=== PATIENT | male | born 1985 | race Asian ===

== ENCOUNTER 2017-05-09 17:23 | Inpatient (IN) | payer OTHER ==
[~2017-05-09] VITALS: Ht 172.7 cm; Wt 77.1 kg
[2017-05-09] MEDS ORDERED: Magnesium Hydroxide 10 mL Oral Concentration PO PRN (21:00)
[2017-05-09] MEDS ORDERED: Benzocaine-Menthol Lozenge 2/Pkg PO PRN (21:00)
[2017-05-09] MEDS ORDERED: Alum-Mag Hydrox-Simeth 30 mL Suspension PO PRN (21:00)
[2017-05-09] MEDS: PALIPERIDONE 6 MG PO SCH (21:25)
--- NOTE | 2017-05-09 23:09 | NUR ---
New Admit Involuntary admit arrived from [facility] at 1935. He was detained after standing outside his neighbors home with knives in his hands. He was fearful someone wanted to harm him. He had been well stabilized with injectable medication but his insurance stopped coverage of that medication and he was changed to an oral version which has not been effective. Pt has decompensated over the last several weeks. Upon arrival he has been actively responding to his voices speaking nonstop to them. He is cooperative with care, agreeable to care and signed admission paperwork. He received his scheduled medication without difficulty. He remains awake at current time. Addendum: 05/10/17 at 0548 by ERNESTO HAYS RN Sleep Pt continued to talk loudly to his voices stating to his voices "She is going to give me an Ativan . I am going to fall asleep and then she is going to kill me". Pt offered and accepted Ativan 1mg po and Vistaril 50mg po prn @ 2330 for felt anxiety. Pt noted to be pacing and responding to AH. He fell asleep in a dining room chair for a period of time. Awoke then walked to his room and promptly fell back asleep. Pt has remained asleep since 0200 to current time for a total of 3.5+ hours.
[2017-05-09] MEDS: hydrOXYzine Pamoate 25 mg Capsule PO PRN (23:15)
[2017-05-09] MEDS: LORazepam 1 mg Tablet PO PRN (23:16)
[2017-05-10] MEDS ORDERED: risperiDONE 2 mg Tablet ONE (00:07)
[2017-05-10] MEDS ORDERED: risperiDONE 2 mg Tablet PO ONE (00:30)
[2017-05-10] MEDS ORDERED: PALI6TAB6 PO (00:31)
[2017-05-10] MEDS ORDERED: HYDR-656 PO (00:33)
[2017-05-10] MEDS: PALIPERIDONE 6 MG PO SCH (07:48)
--- NOTE | 2017-05-10 14:31 | NUR ---
spiritual care: pt request/company introduced myself to pt as he was walking around. he stated he was sleepy but would like to visit for awhile. Pt responded in wooden manner to leading questions (where he lives, what are some things you like to do, family) with minimal but clear responses and he seemed to be responding also to internal stimuli. He murmured quietly throughout our short visit, minimal eye contact and he offered he was not spiritual or moravian, but he believed in a heaven and hell. thanked me for the visit and was agreeable for follow up.
[2017-05-10] MEDS: risperiDONE 1 mg Tablet PO SCH (15:03)
--- NOTE | 2017-05-10 15:17 | NUR ---
Intervention Specialist/Counselor S:"The voices come out of my mouth." O: Patient denies any SI or HI, no visual hallucinations, but has auditory hallucinations. Patient states he hears voices that tell him what to say. His anxiety is at an 8 and his depression at a 0. Patient had 4+ hours of broken sleep. A: Patient was distracted. He mumbled under his breath and stated it was "the voices" speaking for him. He referred to himself in the 3rd person at times. He made minimal eye contact. P: Follow care plan and coordinate with outpatient providers.
[2017-05-10] MEDS: LORazepam 1 mg Tablet PO PRN ×2 (15:34→21:07)
--- NOTE | 2017-05-10 15:34 | NUR ---
Nurses Note PRN Patient received Ativan 1mg at this time for anxiety related to continual auditory hallucinations. Patient has received Risperdal 1mg a short time ago,will assess response.
--- NOTE | 2017-05-10 16:13 | NUR ---
Obs Dayshift Pt is constantly responding to IS, pacing the unit or laying in bed talking w/ unseen others. Pt is often seen w/ his head down, poor eye contact, shuffling and pacing around the unit aimlessly. Pt is not engaging w/ peers, and little w/ staff. Pt is preoccupied, delusional, calm, restless. Ok ADL's, Good meals
--- NOTE | 2017-05-10 17:06 | HP ---
[address] [address] HISTORY AND PHYSICAL PATIENT: BYRON CANTOR : 1985 MR#: [id number] ADMIT: 05/09/2017 JOB ID: [id number] IDENTIFYING DATA: The patient is a 31-year-old male with a history of schizophrenia, who is admitted on a 72-hour [id number] following frequent calls to 911 and report of walking around the neighborhood with "inner tube inserter knives and knocking on people's doors." REFERRAL INFORMATION: The patient is referred by [facility]. CHIEF COMPLAINT: "We had an altercation of someone coming to get me in the house, so I was calling 911." HISTORY OF PRESENT ILLNESS: The patient reports a one-year history of psychotic symptoms and had previously been hospitalized at [facility] in 2016 for approximately two weeks. He reports that he had been treated with Invega Sustenna but his insurance would no longer pay for the injections and so was switched to Invega Sustenna 6 mg which the patient reportedly had been compliant with but his symptoms were worsening despite this. He stated that although he had gone to his neighbors doors, he did not have knives with him at that time. He did state that he had been walking around the house with knives concerned that others, such as a burglar, might break into the house. The patient endorsed occasional auditory hallucinations but not as bad as they had been in the past. He reports that, "Other people talk through my mouth, and they won't allow me to tell you." During the interview, he can be heard making commentaries under his breath, often in response to his own responses. Although initially endorsing symptoms of giuseppe, on further assessment, the patient simply has lack of sleep for typically one day up to a maximum of one week with no increase in activity or worsening of psychotic symptoms. He denies a history of panic, depression or obsessive-compulsive symptoms. He reports decreased sleep over the last couple of weeks with none in the last week, with decreased appetite, but unsure whether he has had any weight change. Energy has been reported as normal and libido, he stated, "I don't have sex." PAST PSYCHIATRIC HISTORY: Outpatient, he is followed at [facility] within [place], his therapist. Inpatient, he has been to [facility] in 2016 for approximately two weeks. He reports his only medication that he has been tried on is Invega. He denies a history of suicide attempts or self-injurious behavior. He denies a family history of mental illness or completed suicide. He endorses a family history of alcohol and substance use on both sides of the family. He reports a family history of borderline diabetes. SUBSTANCE HISTORY: He denies the use of alcohol except on his birthday. He states he prefers Pepsi or Coke. He denies marijuana, cocaine, heroin, amphetamines, huffing, hallucinogens or IV drug abuse. He denies inpatient or outpatient drug treatment. SOCIAL HISTORY: The patient was born in [place] and initially raised in [place], but his parents at age [age] and he was initially raised by his mother. Then, in , lived with his cousin, and from , he lived with his father, and then from 2003 onwards, with his mother. He reports at one point, the possession of the house was transferred to him and so now his mother lives with him instead of the other way around. He reports his father in 2009. He reports having an approximately one-year relationship which ended in 2003 and has one child, age 15, who lives with a foster family in [place]. 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 He has two half-sisters, two stepsisters, one stepbrother and one stepbrother with mental illness. His primary support is his mother with whom he lives. He endorses a history of special education. He denies a history of physical, sexual or emotional abuse. He denies any legal history. PAST MEDICAL HISTORY: The patient denies any acute medical issues. CURRENT MEDICATIONS: 1. Invega 6 mg daily. 2. Hydroxyzine 25 mg four times daily. ALLERGIES: CECLOR, which causes edema. HISTORY OF TRAUMATIC BRAIN INJURY: Denies history of TBI, loss of consciousness or seizure. LABORATORY STUDIES: CBC within normal limits except for an MCHC of 37.7 and an MPV of 0.5. TSH 0.924. CMP within normal limits except for a glucose of 135. Urine tox screen negative for amphetamines, barbiturates, benzodiazepines, cocaine, methadone, opiates, oxycodone, PCP, or cannabinoids. Urine creatinine was 103 mg/dL. Breath alcohol of 0.00. Physical examination at [facility] was unremarkable. Blood pressure was 138/94, with a heart rate of 16, on May 08, 2017. MENTAL STATUS EXAMINATION: Appearance: The patient is a somewhat unkempt-appearing male, appearing his stated age with several days' growth of juarez. Behavior: The patient is generally cooperative with the interview. Does not make eye contact and is noted to be either talking to himself or responding to his own comments in the 3rd person. At the beginning of the interview, he demonstrates how he left the home with knives and put them on the ground and then laid on the ground in a prone fashion for police. Speech: Normal rate, volume and somewhat monotone but is noted to be speaking in low tones, responding to his own statements. Mood: "Pretty good." Affect: Fairly flat. Thought content: He denies suicidal or homicidal ideation, ideas of reference, thought insertion, thought broadcasting or thought withdrawal. He does endorse paranoid ideation and auditory hallucinations but denies visual hallucinations. He rates his anxiety as 8/10 and his depression as 0/10. Memory: He has 3/3 object recall at zero minutes and 2/3 object recall at 3 minutes. Language: He is able to repeat the phrase, "no ifs, ands, or buts, " and able to name three objects. Memory and concentration: He is unable to spell the word world or count backwards and reports this due to learning disability. Fund of information: The patient is aware that the current president is Andrzej and that the capital [facility] is "[employer]" [place]. Insight is fair. Judgment is impaired. Orientation: He is oriented to [facility] 09[facility] 2017, [facility] Sensorium: The patient is alert and oriented without evidence of delirium or dementia. IMPRESSION: The patient is a 31-year-old male with a history of schizophrenia, who presents with symptom exacerbation after being switched from Invega Sustenna to oral Invega. Discussed with outpatient team plan to switch to risperidone and potentially use Risperdal Consta. The patient's outpatient team will be investigating whether this is covered under his insurance. The patient is agreeable to this plan. DSM IV DIAGNOSES: AXIS I. Schizophrenia, chronic paranoid type with acute exacerbation. AXIS II. Deferred. AXIS III. None acute. AXIS IV. None known. AXIS V. Global Assessment of Functioning 35. PLAN: 1. The patient will be admitted to the mental health unit and provided a safe and secure environment. 2. The patient is encouraged to participate with group and milieu activities. 3. The patient is currently denying homicidal or suicidal ideation and is agreeable to notifying staff should this change and is therefore not in need of a one-to-one at this time. 4. The treatment team will meet with the patient on an ongoing basis to assess symptom side effects and response to treatment. 5. Initiate Risperdal 1 mg daily and 2 mg nightly and titrate to an anticipated dose of 3-4 mg per day. 6. Continue Invega 6mg daily for a few days prior to discontinuation. 7. Will follow up with the outpatient team regarding potential for initiation of Risperdal Consta. 8. Anticipated length of stay is 10-14 days. MTDD
[2017-05-10 17:49] VITALS: BP 130/92; PULSE 86; RESP 17
--- NOTE | 2017-05-10 18:00 | NUR ---
Nursin through 1900 S: The voices are coming out of my mouth, not my head. O: Nick has been in his room for long periods today. Cooking Chef observed walking by his room that Nick was lying on his bed talking aloud, responding verbally to unseen presence. When approached, he stopped talking, gave good eye contact, answered my assessment questions, then as I walked from room, he turned over and resumed his conversation with internal stimuli. Denied anxiety, suicidality, and depression. Acknowledged that he heard voices but stated, as above, that they come from his mouth. PRN med: Ativan one mg at 1530 for any distress voices may be causing. At 1800, denies anxiety. A: Attending to internal stimuli. P: Continue to observe and assess. [place] more to unit as needed.
[2017-05-10] MEDS: risperiDONE 2 mg Tablet PO SCH (21:07)
[2017-05-10 23:07] VITALS: BP 117/80; PULSE 90
--- NOTE | 2017-05-11 05:23 | NUR ---
SHIMA/NOC PT has been in room sleeping all shima and night. PT did come out to the dayroom once and had a snack and then quickly returned to his room to sleep. Overheard pt talking to himself as he walked down the [place]. This RN asked him how he was doing and he said "fine." PT would not engage in conversation. NO complaints from pt. Slept excessively. Will CTM for any A/R and continue with current POC.
[2017-05-11] MEDS: PALIPERIDONE 6 MG PO SCH ×2 (08:30→09:16)
[2017-05-11] MEDS: risperiDONE 1 mg Tablet PO SCH (08:32)
--- NOTE | 2017-05-11 17:06 | NUR ---
Nursing Day Shift S: "I feel better today than yesterday." O: Patient has been up and out of his room a good amount of the day. Good appetite at meals. Some ambulating of the [place]. Attending unit activities "I didn't set a goal though". Denies anxiety, depression, harmful thoughts, and hallucinations. A: Blunted affect. Med compliant. P: CPOC. Monitor mood and behavior.
[2017-05-11] MEDS: risperiDONE 2 mg Tablet PO SCH (18:34)
[2017-05-11] MEDS: LORazepam 1 mg Tablet PO PRN (18:34)
--- NOTE | 2017-05-11 18:35 | NUR ---
Nurses PRN Patient actively responding to inner stimulation,talking aloud while restlessly walking the halls. Patient requested medication for voices and received Ativan 1mg PRN and Risperdal 2mg scheduled early,will assess response.
--- NOTE | 2017-05-11 18:54 | NUR ---
[facility] Day Shift Pt maintained behavioral control throughout the shift. Pt affect appears mostly flat. Pt spends most of the shift lightly pacing the unit and resting in his room. Pt appears internally preoccupied, mumbling to himself and occasionally laughing inappropriately. Pt is appropriate with staff and peers when active on the unit. Pt attended community meeting in the AM and participated lightly in group activities throughout the shift. Pt attended all meals and ate approx 100% of all meals.
--- NOTE | 2017-05-11 19:33 | NUR ---
channel sales manager/Counselor: S: "I don't have sex." O: Patient slept 8 hours last night per staff. He denies S/I and H/I. He endorse paranoid ideation and auditory hallucinations. He denies visual hallucinations. Depression is 0/10 and anxiety is 8/10. A: Patient is uncooperative, distactible, guarded, labile, irritable, anxious, dysthymic, paranoid, hyper-vigilant, limited insight, poor judgment. P: Follow care plan, coordinate with out-patient providers, monitor behavior.
[2017-05-11] MEDS: hydrOXYzine Pamoate 25 mg Capsule PO PRN (21:00)
[2017-05-11 22:29] VITALS: BP 123/72; PULSE 88; RESP 16
--- NOTE | 2017-05-11 22:51 | PCM.PNPSY ---
Subjective Date of Service May 11, 2017 Subjective The patient reports that he is feeling better and thinking more clearly. He is still experiencing multiple other individuals speaking through him. He reports that in the past he has seen demons but he currently is not seeing demons. He denies significant side effects except for some restless legs. He believes that he was tried on propranolol which was not effective. I advised him that benztropine was available and he could use this to help reduce his symptoms. Sleep: 8+ hours, "pretty good" Appetite: "Really good" Suicidal and homicidal ideation: Denies Auditory hallucinations: Endorses as above Visual hallucinations: Denies Other Psychotic Symptoms: Denies Anxiety: "Pretty good" Depression: 0/10 Current Medications Current Medications Hydroxyzine Pamoate 50 mg Q4H PRN PO Last administered on 05/09/17 23:15; Admin Dose 50 MG; Start 05/09/17 at 21:00 Lorazepam 1 mg Q4H PRN PO Last administered on 05/10/17 21:07; Admin Dose 1 MG ; Start 05/09/17 at 21:00 Patient Own Medication 1 ea Q24 PO Last administered on 05/11/17 09:16; Admin Dose 1 EA; Start 05/09/17 at 21:10 Risperidone 1 mg DAILY PO Last administered on 05/11/17 08:32; Admin Dose 1 MG ; Start 05/10/17 at 14:15 Risperidone 2 mg HS PO Last administered on 05/10/17 21:07; Admin Dose 2 MG; Start 05/10/17 at 21:00 Risperidone 2 mg STK-MED ONCE .ROUTE Last administered on 05/10/17 00:16; Admin Dose 2 MG; Start 05/10/17 at 00:07; Stop 05/10/17 at 00:11; Status DC Trazodone HCl 100 mg HS PO Last administered on 05/10/17 21:09; Admin Dose 100 MG; Start 05/09/17 at 21:00 Mental Status Exam Appearance: Unkept Attitude: Pleasant, Cooperative Behavior: No unusual behavior, Other (Toe tapping) Affect: Restricted Mood: Euthymic Thought Process/Associations: Logical/Sequential Speech Production: Paucity Speech Rate: Normal Speech Articulation: Normal Thought Content: Suspicious Danger to Self/Suicidal Ideati: None Danger to Others: None Hallucinations: Auditory (Endorses, others talking through him), Visual (Denies ) Consciousness: Alert Orientation: Person, Place, Date, Situation Memory: Grossly Intact Estimate Intellectual Function: Average (to), Below Average Basis for IQ estimate: Awareness current events, Educational history, Employment history Attention/Concentration & Cogn: Impaired Insight: Good Judgement: Good Mental Health Plan The patient is a 31-year-old male with a history of schizophrenia, who presents with symptom exacerbation after being switched from Invega Sustenna to oral Invega. Discussed with outpatient team plan to switch to risperidone and potentially use Risperdal Consta. The patient's outpatient team will be investigating whether this is covered under his insurance. The patient is agreeable to this plan. The patient reports that he is tolerating risperidone and would like to simply switch from a combination of Invega and risperidone to risperidone twice daily. [place] AXIS I. Schizophrenia, chronic paranoid type with acute exacerbation. AXIS II. Deferred. AXIS III. None acute. AXIS IV. None known. AXIS V. Global Assessment of Functioning 35. Treatments 1. The patient will be admitted to the mental health unit and provided a safe and secure environment. 2. The patient is encouraged to participate with group and milieu activities. 3. The patient is currently denying homicidal or suicidal ideation and is agreeable to notifying staff should this change and is therefore not in need of a one-to-one at this time. 4. The treatment team will meet with the patient on an ongoing basis to assess symptom side effects and response to treatment. 5. Increase Risperdal to 2 mg twice daily 6. Discontinue oral Invega 7. Will follow up with the outpatient team regarding potential for initiation of Risperdal Consta. 8. Anticipated length of stay is 10-14 days. Jj Sy MD May 11, 2017 16:07
--- NOTE | 2017-05-12 04:58 | NUR ---
nursing, nights, 11-7 s/o- has appeared to sleep after 2100 during q 15 minute assessments. a- no apparent distress. p- monitor behavior/emotional state, quality, times and amount of sleep, use and effect of medication. therese
[2017-05-12] MEDS: risperiDONE 2 mg Tablet PO SCH ×2 (08:21→20:05)
[2017-05-12 10:52] VITALS: BP 122/81; PULSE 108; RESP 16
[2017-05-12] MEDS: hydrOXYzine Pamoate 25 mg Capsule PO PRN ×2 (14:59→19:41)
--- NOTE | 2017-05-12 18:34 | NUR ---
manager corporate strategy/Counselor: S: "I want to sleep for a little while." O: Patient slept 9 hours last night per staff. He denies S/I and H/I. He denies auditory hallucinations and visual hallucinations. Depression is 0/10 and anxiety is 0/10. When asked his mood, patient stated "Good." A: Patient is uncooperative, distactible, guarded, labile, irritable, anxious, dysthymic, internally preoccupied, paranoid, hyper-vigilant, limited insight, poor judgment. P: Follow care plan, coordinate with out-patient providers, monitor behavior.
[2017-05-12] MEDS: LORazepam 1 mg Tablet PO PRN (20:50)
--- NOTE | 2017-05-12 20:54 | NUR ---
Observations 0900 - 2130 Pt affect and mood was isolative, preoccupied, guarded and anxious. Pt speech and eye contact was ok. Pt is polite and cooperative. Pt attended community meeting and set a daily goal. Pt is minimally social with peers and mostly keeps to himself. Pt attended meals in D.R. and has a good appetite. Pt ate 100% of his meals. Pt ate snack. Pt took a shower. Pt rested in bed during free time. Pt was observed every 15 minutes as ordered throughout the shift.
--- NOTE | 2017-05-12 21:33 | NUR ---
Dayshift/Evening Shift: S: "voices keep coming out of my mouth" O: Pt is isolative to his room today. Pt did come out for group and then went back to his room quickly afterwards. A: Pt states his anxiety is a 0/10, pt states his depression is a 0/10. Pt denies any SI/HI ideations. Pt appears disheveled, his hair is a mess. Pt affect is flat. Pt has a normal rate and rhythm for speech. Pt believes that he has voices coming out of his mouth. He was talking, but no one was there with him, quite a bit today, when asked who he is talking to he said the demon or he would say the voices from his mouth. P: Follow plan of care, monitor behaviors. Monitor for side effects.
--- NOTE | 2017-05-12 22:19 | PCM.PNPSY ---
Subjective Date of Service May 12, 2017 Subjective The patient reports that he is feeling doing better today with only one voice at a time speaking through him. He reported that when he was taking Invega oral , he was experiencing 2-5 individuals at a time speaking through him. He reports feeling tired today and we discussed moving medication to bedtime, but he would prefer a smaller dose in the morning, at least for now. He has mild restlessness but does not consider this problematic. Has not tried benztropine so far. Sleep: 9+ hours Appetite: "pretty good" Suicidal and homicidal ideation: Denies Auditory hallucinations: Endorses as above Visual hallucinations: Denies Other Psychotic Symptoms: Denies Anxiety: 0/10 Depression: 0/10 Current Medications Current Medications Risperidone 2 mg BID PO Last administered on 05/12/17t 20:05; Admin Dose 2 MG; Start 05/12/17 at 08:30 Mental Status Exam Appearance: Unkept Attitude: Pleasant, Cooperative Behavior: No unusual behavior, Other (restless feet) Affect: Restricted Mood: Euthymic Thought Process/Associations: Logical/Sequential Speech Production: Paucity Speech Rate: Normal Speech Articulation: Normal Thought Content: Suspicious Danger to Self/Suicidal Ideati: None Danger to Others: None Hallucinations: Auditory (Endorses, others talking through him), Visual (Denies ) Consciousness: Alert Orientation: Person, Place, Date, Situation Memory: Grossly Intact Estimate Intellectual Function: Average (to), Below Average Basis for IQ estimate: Awareness current events, Educational history, Employment history Attention/Concentration & Cogn: Impaired Insight: Good Judgement: Good Mental Health Plan The patient is a 31-year-old male with a history of schizophrenia, who presents with symptom exacerbation after being switched from Invega Sustenna to oral Invega. Discussed with outpatient team plan to switch to risperidone and potentially use Risperdal Consta. The patient's outpatient team will be investigating whether this is covered under his insurance. The patient is agreeable to this plan. The patient reports that he is feeling that risperidone is effective but that he is too tired and would like it shifted gradually to bedtime. Patient agreeable to Consta if paid for by insurance. [place] AXIS I. Schizophrenia, chronic paranoid type with acute exacerbation. AXIS II. Deferred. AXIS III. None acute. AXIS IV. None known. AXIS V. Global Assessment of Functioning 35. Treatments 1. The patient will be admitted to the mental health unit and provided a safe and secure environment. 2. The patient is encouraged to participate with group and milieu activities. 3. The patient is currently denying homicidal or suicidal ideation and is agreeable to notifying staff should this change and is therefore not in need of a one-to-one at this time. 4. The treatment team will meet with the patient on an ongoing basis to assess symptom side effects and response to treatment. 5. Change Risperdal to 1 mg daily and 3mg nightly 6. Awaiting follow-up from outpatient provider regarding coverage for Consta 7. Anticipated length of stay is 10-14 days. Jj Sy MD May 12, 2017 22:19
--- NOTE | 2017-05-13 05:07 | NUR ---
nursing, nights, 11-7 s/o- has appeared to sleep after 2345 during q 15 minute assessments. a- no apparent distress. p- monitor behavior/emotional state, quality, times and amount of sleep, use and effect of medication. therese
[2017-05-13] MEDS ORDERED: risperiDONE 1 mg Tablet PO SCH (08:30)
[2017-05-13 13:29] VITALS: BP 119/84; PULSE 80; RESP 16
--- NOTE | 2017-05-13 17:58 | NUR ---
Nursing Notes [id number] S: "I live in [place] with my mom". "I try to take care of her when I am home". "I try to be a good son". O: Patient continues to verbally respond to voices. Denies auditory/visual hallucinations, SI/HI. Reports depression 01/07 and anxiety 03/07. Always requests his bedroom door remain open. A: Flat, reserved, cooperative, isolative at times-keeps to self. P: Monitor for safety and response to treatment. Follow plan of care. Addendum: 05/13/17 at 1801 by DAVEY CHERRY RN PRVera's Risperdal 1 mg @0842 for anxiety. Effective. Cogentin 1 mg po @1102 for restlessness. Effective.
--- NOTE | 2017-05-13 18:36 | NUR ---
[facility] Day Shift Pt affect and behavior appear unchanged from previous shifts. Pt maintained behavioral control throughout the shift. Pt affect appears mostly flat. Pt spends most of the shift lightly pacing the unit and resting in his room. Pt appears internally preoccupied, mumbling to himself and occasionally laughing inappropriately. Pt is appropriate with staff and peers when active on the unit. Pt attended community meeting in the AM and participated lightly in group activities throughout the shift. Pt attended all meals and ate approx 100% of all meals.
--- NOTE | 2017-05-13 20:26 | NUR ---
facilities maintenance manager/Counselor: S: "The voices are not me." O: Patient slept 6.25 last night. Patient denies S/I and H/I. He denies auditory and visual hallucinations. Depression is 0/10 and anxiety is 0/10. A: Patient is cooperative, restricted, euthymic. P: Follow care plan, coordinate with out-patient providers.
[2017-05-13] MEDS ORDERED: risperiDONE 2 mg Tablet PO SCH (21:00)
--- NOTE | 2017-05-13 21:16 | PCM.PNPSY ---
Subjective Date of Service May 13, 2017 Subjective The patient reports that he is doing better today with only one voice at a time speaking through him. He reports that he feels that he is doing better than he did when he was on PO Invega, but would prefer long-acting injection. He reports feeling less tired today since moving majority of risperidone to bedtime and would like to move the remainder to bedtime starting tomorrow. Patient still restless but had not tried benztropine. Patient given PRN dose and reported that he responded quite well and requested scheduled twice daily dosing. He denies other side effects. He reports family is visiting tomorrow. He denies side effects or medical issues. Sleep: 6.25+ hours "a little better" Appetite: "pretty good" Suicidal and homicidal ideation: Denies Auditory hallucinations: Endorses as above, reports "controls a little" but not for SI/HI Visual hallucinations: Denies Other Psychotic Symptoms: Negative symptoms Anxiety: 0/10 Depression: 0/10 Current Medications Current Medications Benztropine Mesylate 1 mg BID PO Last administered on 05/13/17 20:19; Admin Dose 1 MG; Start 05/13/17 at 20:30 Risperidone 1 mg DAILY PO Last administered on 05/13/17 08:42; Admin Dose 1 MG ; Start 05/13/17 at 08:30; Stop 05/13/17 at 23:00 Risperidone 2 mg BID PO Last administered on 05/12/17 20:05; Admin Dose 2 MG; Start 05/12/17 at 08:30; Stop 05/12/17 at 22:12; Status DC Risperidone 3 mg HS PO Last administered on 05/13/17 20:19; Admin Dose 3 MG; Start 05/13/17 at 21:00; Stop 05/13/17 at 23:00 Mental Status Exam Vital Signs Vital Signs Date Time Temp Pulse Resp B/P Pulse Ox O2 Delivery O2 Flow Rate FiO2 05/13/17 13:29 36.4 80 16 119/84 Appearance: Unkept Attitude: Pleasant, Cooperative Behavior: No unusual behavior, Other (restless feet) Affect: Restricted Mood: Euthymic Thought Process/Associations: Logical/Sequential Speech Production: Paucity Speech Rate: Normal Speech Articulation: Normal Thought Content: Suspicious Danger to Self/Suicidal Ideati: None Danger to Others: None Hallucinations: Auditory (Endorses, others talking through him), Visual (Denies ) Consciousness: Alert Orientation: Person, Place, Date, Situation Memory: Grossly Intact Estimate Intellectual Function: Average (to), Below Average Basis for IQ estimate: Awareness current events, Educational history, Employment history Attention/Concentration & Cogn: Impaired Insight: Good Judgement: Good Mental Health Plan The patient is a 31-year-old male with a history of schizophrenia, who presents with symptom exacerbation after being switched from Invega Sustenna to oral Invega. Discussed with outpatient team plan to switch to risperidone and potentially use Risperdal Consta. The patient's outpatient team will be investigating whether this is covered under his insurance. The patient is agreeable to this plan. The patient reports that he is feeling that risperidone is effective but that he is too tired and would like it shifted gradually to bedtime. Patient agreeable to Consta if paid for by insurance. Patient responded well to benztropine and requested routine dosing. [place] AXIS I. Schizophrenia, chronic paranoid type with acute exacerbation. AXIS II. Deferred. AXIS III. None acute. AXIS IV. None known. AXIS V. Global Assessment of Functioning 35. Medications Risperidone 4mg po nightly Benztropine 1mg po twice daily Treatments 1. The patient will be admitted to the mental health unit and provided a safe and secure environment. 2. The patient is encouraged to participate with group and milieu activities. 3. The patient is currently denying homicidal or suicidal ideation and is agreeable to notifying staff should this change and is therefore not in need of a one-to-one at this time. 4. The treatment team will meet with the patient on an ongoing basis to assess symptom side effects and response to treatment. 5. Change Risperdal to 4mg nightly 6. Schedule benztropine 1mg twice daily. 7. Awaiting follow-up from outpatient provider regarding coverage for Consta 8. Anticipated length of stay is 10-14 days. Jj Sy MD May 13, 2017 21:16
[2017-05-14] MEDS: hydrOXYzine Pamoate 25 mg Capsule PO PRN (01:10)
[2017-05-14] MEDS: LORazepam 1 mg Tablet PO PRN ×2 (01:10→20:41)
--- NOTE | 2017-05-14 04:35 | NUR ---
Nursing Noc Pt noted to have poor sleep this shift. Observed to be responding to internal stimuli or internally preoccupied at times. Ambulating in hallway without obvious purpose at times through the night. Taking medications as directed and using PRNs to assist with sleep. Continuing to monitor mood behavior and emotional state. Q15 minute safety checks performed as directed. CP.
[2017-05-14 12:12] VITALS: BP 124/80; PULSE 85; RESP 16
--- NOTE | 2017-05-14 15:48 | NUR ---
Observations 0700 - 1900 Pt affect and mood was preoccupied, guarded and anxious. Pt was pacing the hallway and talking to himself more today than previous days. Pt speech and eye contact was ok. Pt is polite and cooperative. Pt attended community meeting and set a daily goal. Pt is minimally social with peers and mostly keeps to himself. Pt attended meals in D.R. and has a good appetite. Pt ate 75-100% of his meals. Pt ate snack. Pt took a shower and attended to ADL's. Pt rested in bed and paced the hallway during free time. Pt was observed every 15 minutes as ordered throughout the shift.
--- NOTE | 2017-05-14 18:40 | NUR ---
[id number]. nurs. S/O: Pt has been frequently in conversation with self, aloud when in bedrm and out with others, and talking to self in third person at times. When asked if OK pt reports is fine and does not appear uncomfortable. Pt out on unit to attend community grp, and not seeking interaction but appearing reasonably comfortable on unit at times pacing [place]. Addendum: 05/14/17 at 1924 by TIEN ANGELA RN Pt stating that it helps him most to walk around the unit and distract himself with the environment and that he will approach staff if they can provide additional help with dealing with his AHs.
[2017-05-14] MEDS: risperiDONE 2 mg Tablet PO SCH (20:42)
[2017-05-15] MEDS: hydrOXYzine Pamoate 25 mg Capsule PO PRN (00:45)
--- NOTE | 2017-05-15 05:35 | NUR ---
Nursing notes: shift mgr Patient noted to be awake at start of shift, walking in hallways talking to self. Patient received Vistaril 50 mg po at 0045 along with requested milk, then retired to bed. Patient appears to be sleeping on subsequent safety checks. Voices no complaints.
[2017-05-15 09:54] VITALS: BP 108/71; PULSE 65; RESP 16
--- NOTE | 2017-05-15 14:22 | NUR ---
[id number]. nurs. S: " My mother just wants me to get well, I don't want her to worry.......better (intensity of AHs) but still a lot .." O: Pt stating that he was noting improvement in his condition from admission but also reported that still having multiple intrusive AHs telling him what to do /commenting. 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 A: Pt experiencing decrease in overwhelming AHs pt continues to walk the length of [place], not seeking interaction with peers or others, does participate in grp with some mumbled conversation with self in grps, but was able to stop and be quiet as guided imagery grp progressed per [facility]. P:CNCP
--- NOTE | 2017-05-15 15:44 | PCM.PNPSY ---
Subjective Date of Service May 15, 2017 Subjective I spent 30 minutes both reviewing treatment plan with our clinical team, interviewing the patient and providing supportive/educational psychotherapy. I spent more than 50% of the time counseling the patient. I reviewed the treatment plan with the him and discussed options available including the potential risks, benefits and side effects. Nick reports a slight improvement in thought organization and mood stability. Staff reports that he has been active and participating well in one-to-one unit and group activities. He denies depressive or manic symptoms review. He reported significant symptoms of psychosis including auditory hallucinations, ideas of reference, paranoid and paranoia. He talked at length about different video games that he enjoys. He tries to stay away from first person shooter games and enjoys sports games. He showed good insight and judgment into describing the effects that first person shooter games have on his imagination versus sports games such as [employer] football. I truly enjoyed my discussion with him. He denies medication side effects. He was able to identify his medications and what they were used to treat. Current Medications Current Medications Benztropine Mesylate 1 mg BID PO Last administered on 05/15/17 08:16; Admin Dose 1 MG; Start 05/13/17 at 20:30 Risperidone 3 mg HS PO Last administered on 05/13/17 20:19; Admin Dose 3 MG; Start 05/13/17 at 21:00; Stop 05/13/17 at 23:00; Status DC Risperidone 4 mg HS PO Last administered on 05/14/17 20:42; Admin Dose 4 MG; Start 05/14/17 at 21:00 Mental Status Exam Vital Signs Vital Signs Date Time Temp Pulse Resp B/P Pulse Ox O2 Delivery O2 Flow Rate FiO2 05/15/17 09:54 36.0 65 16 108/71 Appearance: Unkept Attitude: Pleasant, Cooperative Behavior: No unusual behavior, Other (restless feet) Affect: Restricted Mood: Euthymic Thought Process/Associations: Logical/Sequential Speech Production: Paucity Speech Rate: Normal Speech Articulation: Normal Thought Content: Suspicious Danger to Self/Suicidal Ideati: None Danger to Others: None Hallucinations: Auditory (Endorses, others talking through him), Visual (Denies ) Consciousness: Alert Orientation: Person, Place, Date, Situation Memory: Grossly Intact Estimate Intellectual Function: Average (to), Below Average Basis for IQ estimate: Awareness current events, Educational history, Employment history Attention/Concentration & Cogn: Impaired Insight: Good Judgement: Good Mental Health Plan The patient is a 31-year-old male with a history of schizophrenia, who presents with symptom exacerbation after being switched from Invega Sustenna to oral Invega. He has been treated with Risperdal. He reports gradual but steady improvement in thought organization and mood stability. [place] AXIS I. Schizophrenia, chronic paranoid type with acute exacerbation. AXIS II. Deferred. AXIS III. None acute. AXIS IV. None known. AXIS V. Global Assessment of Functioning 35. Medications Risperidone 4mg po nightly Benztropine 1mg po twice daily Treatments Patient is being provided with a high degree of safety through our unit structure and active adult engagement provided by our mental health professionals, mental health technicians, psychiatric nurses and myself. We are focusing on developing improved coping skills and identifying stressors that may have led to current episode. We will attempt to: * Integrate into therapeutic groups, milieu and individual therapy. * Maintain in a closely monitored and structured unit * Provide low-stimulation environment * Obtain collateral data to assist in treatment planning * Assess degree of lability of affect and impulse control * Complete safety plan * Decrease frequency of relapse and need for re-hospitalization * Establish a consistent sleep pattern * Medication effective in stabilization of mood and/or thought process * Reduce the risk of imminent harm to self and/or others by providing a safe environment * Tolerates medication without side effects Patient will be on the following psychiatric medications: Risperdal 4 mg at bedtime Cogentin 1 mg twice a day Education: Educate patient about recreational drug use as an etiology Educate about metabolic etiologies related to obesity Patient's legal status Patient is on a 14 day MR involuntary treatment hold. Patient will be given the opportunity to talk to her zipper repairer and the powder blender and pourer Anticipated number of hospital days to achieve above goals: 5 Disposition: Home Aden Farris MD May 15, 2017 15:44
--- NOTE | 2017-05-15 17:47 | NUR ---
[facility] Day Shift Pt affect and behavior appear mostly unchanged from previous shifts. Pt maintained behavioral control throughout the shift. Pt affect appears mostly flat (though brighter than noted on previous shifts). Pt spends most of the shift lightly pacing the unit and resting in his room. Pt continues to appear internally preoccupied, mumbling to himself and occasionally laughing inappropriately. Pt is appropriate with staff and peers when active on the unit. Pt attended all group activities throughout the shift. Pt attended all meals and ate approx 100% of all meals.
[2017-05-15] MEDS: risperiDONE 2 mg Tablet PO SCH (20:33)
--- NOTE | 2017-05-16 05:36 | NUR ---
Nursing Note Continuous Pickling Line Pickler 11pm to 7am Pt asleep at start of shift and remained asleep the duration of the night. No complaints voiced or observed. Pt monitored with q15 min face checks for safety, location and accountability.
[2017-05-16 11:12] VITALS: BP 108/68; PULSE 62; RESP 16
--- NOTE | 2017-05-16 13:31 | PCM.PNPSY ---
Subjective Date of Service May 16, 2017 Subjective I spent 30 minutes both reviewing treatment plan with our clinical team, interviewing the patient and providing supportive/educational psychotherapy. I spent more than 50% of the time counseling the patient. I reviewed the treatment plan with the him and discussed options available including the potential risks, benefits and side effects. Nick reports a continued improvement in thought organization and mood stability. Staff reports that he has been active and participating well in one- to-one unit and group activities. He denies depressive or manic symptoms review. He reported significant symptoms of psychosis including auditory hallucinations, ideas of reference,and paranoia. We talked at length about different video games that help him keep his hand eye coordination high as well as providing him with the sense of weaning each day. We talked about different physical practices he could do in addition to the video game playing. He denies medication side effects. He was able to identify his medications and what they were used to treat. Current Medications Current Medications Risperidone 4 mg HS PO Last administered on 05/15/17t 20:33; Admin Dose 4 MG; Start 05/14/17 at 21:00 Mental Status Exam Vital Signs Vital Signs Date Time Temp Pulse Resp B/P Pulse Ox O2 Delivery O2 Flow Rate FiO2 05/16/17 11:12 36.0 62 16 108/68 Appearance: Unkept Attitude: Pleasant, Cooperative Behavior: No unusual behavior Affect: Restricted Mood: Euthymic Thought Process/Associations: Logical/Sequential Speech Production: Normal Speech Rate: Normal Speech Articulation: Normal Thought Content: Suspicious Danger to Self/Suicidal Ideati: None Danger to Others: None Hallucinations: Auditory (Endorses, others talking through him) Consciousness: Alert Orientation: Person, Place, Date, Situation Memory: Grossly Intact Estimate Intellectual Function: Average (to), Below Average Basis for IQ estimate: Awareness current events, Educational history, Employment history Attention/Concentration & Cogn: Impaired Insight: Good Judgement: Good Mental Health Plan The patient is a 31-year-old male with a history of schizophrenia, who presents with symptom exacerbation after being switched from Invega Sustenna to oral Invega. He has been treated with Risperdal. He reports gradual but steady improvement in thought organization and mood stability. If he continues to stabilize and improve I would anticipate discharge at the end of this week. [place] AXIS I. Schizophrenia, chronic paranoid type with acute exacerbation. AXIS II. Deferred. AXIS III. None acute. AXIS IV. None known. AXIS V. Global Assessment of Functioning 35. Medications Risperidone 4mg po nightly Benztropine 1mg po twice daily Treatments Patient is being provided with a high degree of safety through our unit structure and active adult engagement provided by our mental health professionals, mental health technicians, psychiatric nurses and myself. We are focusing on developing improved coping skills and identifying stressors that may have led to current episode. We will attempt to: * Integrate into therapeutic groups, milieu and individual therapy. * Maintain in a closely monitored and structured unit * Provide low-stimulation environment * Obtain collateral data to assist in treatment planning * Assess degree of lability of affect and impulse control * Complete safety plan * Decrease frequency of relapse and need for re-hospitalization * Establish a consistent sleep pattern * Medication effective in stabilization of mood and/or thought process * Reduce the risk of imminent harm to self and/or others by providing a safe environment * Tolerates medication without side effects Patient will be on the following psychiatric medications: Risperdal 4 mg at bedtime Cogentin 1 mg twice a day Education: Educate patient about recreational drug use as an etiology Educate about metabolic etiologies related to obesity Patient's legal status Patient is on a 14 day MR involuntary treatment hold. Patient will be given the opportunity to talk to her banquet manager and the choir singer Anticipated number of additional hospital days to achieve above goals: 4 Disposition: Home Aden Farris MD May 16, 2017 13:31
--- NOTE | 2017-05-16 15:19 | NUR ---
Obs Dayshift Pt has done a lot of pacing on the unit today, and constantly responding to IS. Pt was overheard talking to unseen others, stating "If I don't kill them then I would be come " States to staff that he is doing very well, 7-07/07 with 10 being the best day. Pt is polite and engages well w/ staff and peers upon approach. Playing games or cards w/ peers during free times out on the unit. Pt removes himself when he gets overwhelmed. Attends groups, calm and appropriate. Good ADL's, Good meals
--- NOTE | 2017-05-16 16:05 | NUR ---
Nursing Unit Manager/Counselor S:"I'm feeling much better today than last week." O: Patient stated that he does not have any SI or HI, rated his depression at a 0 and his anxiety at a 2. He did not report any visual hallucinations for the last 2 days and that his auditory hallucinations were mild, and not as bad as before. He slept for 7 hours. A: Patient has been pacing the hallways, but has been pleasant and cooperative. He has been playing cards with another patient. Patient did attend group on "Past and Future achievements" and "Hands Past and Future" activity. Patient actively participated and was able to list achievements from the past as well as establish some future achievement goals. P: Follow care plan and coordinate with outpatient providers.
--- NOTE | 2017-05-16 17:23 | NUR ---
Nursin to 1899 Nick has been out on the open unit most of the shift. He attends groups. He walks in the [place]. Interacts with pers minimally. Has a flat expression. When creative services writer talked with him about 1629, Nick stated he has no suicidal intent and no anxiety. He states he isn't scared now (as he was before admission). Still hears voices but they don't bother him. Rated depression at 02/04; denied anxiety. Addendum: 05/16/17 at 1728 by OMARI WILLETT RN Amended: Links added.
[2017-05-16] MEDS: risperiDONE 2 mg Tablet PO SCH (20:31)
--- NOTE | 2017-05-16 22:48 | NUR ---
Nursing Noc Pt spent the evening out in the milieu. He remains pleasant, cooperative and social with peers. Took scheduled medication without difficulty. He remains awake playing cards with a peer. Addendum: 05/17/17 at 0656 by ERNESTO HAYS RN Delayed onset of sleep. Pt has remained asleep since 0100 with no noted distress or awakening per protocol checks. Total sleep over 5.5 hours.
[2017-05-17 12:55] VITALS: BP 113/68; PULSE 70; RESP 16
--- NOTE | 2017-05-17 14:09 | NUR ---
Nursing day note- Walking around in unit. Has been calm and appropriate. Stated,"I"m doing fine." Says that he still hears voices, but not as many as before. Appetite good.
--- NOTE | 2017-05-17 15:08 | PCM.PNPSY ---
Subjective Date of Service May 17, 2017 Subjective I spent 30 minutes both reviewing treatment plan with our clinical team, interviewing the patient and providing supportive/educational psychotherapy. I spent more than 50% of the time counseling the patient. I reviewed the treatment plan with the him and discussed options available including the potential risks, benefits and side effects. Nick reports a continued improvement in thought organization and mood stability. Staff reports that he has been active and participating well in one- to-one unit and group activities. He denies depressive or manic symptoms review. He reported significant symptoms of psychosis including auditory hallucinations, ideas of reference,and paranoia. We talked at length about different coping strategies he could use to maintain the gains he has had here on the unit. He denies medication side effects. He was able to identify his medications and what they were used to treat. Mental Status Exam Vital Signs Vital Signs Date Time Temp Pulse Resp B/P Pulse Ox O2 Delivery O2 Flow Rate FiO2 05/17/17 12:55 37.2 70 16 113/68 Appearance: Unkept Attitude: Pleasant, Cooperative Behavior: No unusual behavior Affect: Restricted Mood: Euthymic Thought Process/Associations: Logical/Sequential Speech Production: Normal Speech Rate: Normal Speech Articulation: Normal Thought Content: Suspicious Danger to Self/Suicidal Ideati: None Danger to Others: None Hallucinations: Auditory (Endorses, others talking through him) Consciousness: Alert Orientation: Person, Place, Date, Situation Memory: Grossly Intact Estimate Intellectual Function: Average (to), Below Average Basis for IQ estimate: Awareness current events, Educational history, Employment history Attention/Concentration & Cogn: Impaired Insight: Good Judgement: Good Mental Health Plan The patient is a 31-year-old male with a history of schizophrenia, who presents with symptom exacerbation after being switched from Invega Sustenna to oral Invega. He has been treated with Risperdal. He reports gradual but steady improvement in thought organization and mood stability. If he continues to stabilize and improve I would anticipate discharge at the end of this week. [place] AXIS I. Schizophrenia, chronic paranoid type with acute exacerbation. AXIS II. Deferred. AXIS III. None acute. AXIS IV. None known. AXIS V. Global Assessment of Functioning 35. Medications Risperidone 4mg po nightly Benztropine 1mg po twice daily Treatments Patient is being provided with a high degree of safety through our unit structure and active adult engagement provided by our mental health professionals, mental health technicians, psychiatric nurses and myself. We are focusing on developing improved coping skills and identifying stressors that may have led to current episode. We will attempt to: * Integrate into therapeutic groups, milieu and individual therapy. * Maintain in a closely monitored and structured unit * Provide low-stimulation environment * Obtain collateral data to assist in treatment planning * Assess degree of lability of affect and impulse control * Complete safety plan * Decrease frequency of relapse and need for re-hospitalization * Establish a consistent sleep pattern * Medication effective in stabilization of mood and/or thought process * Reduce the risk of imminent harm to self and/or others by providing a safe environment * Tolerates medication without side effects Patient will be on the following psychiatric medications: Risperdal 4 mg at bedtime Cogentin 1 mg twice a day Education: Educate patient about recreational drug use as an etiology Educate about metabolic etiologies related to obesity Patient's legal status Patient is on a 14 day involuntary treatment hold. Patient will be given the opportunity to talk to her water systems designer and the magisterial district judge Anticipated number of additional hospital days to achieve above goals: 3 Disposition: Home Aden Farris MD May 17, 2017 15:08
--- NOTE | 2017-05-17 15:35 | NUR ---
Obs Dayshift Pt is often pacing the unit, responding to IS in a negative manner, mumbling quietly. Pt is able to engage well w/ staff and peers when approached. Pt has reasonable requests, attends groups w/ good participation and appropriate. Pt does participate in games or cards during free times in the milieu. Ok ADL's, Good meals
--- NOTE | 2017-05-17 15:43 | NUR ---
Float Operator/Counselor S:"Some of the voices are there." O: Patient did not report any SI or HI, and no visual hallucinations. He states that the voices are there but they are quiet. No depression and his anxiety is at a 2. A: Patient is pacing the hallways and is heard mumbling. Patient was mumbling while in group. He is very friendly and cooperative when talked to directly. He is out in the milieu and has been playing cards. P:Follow care plan and coordinate with outpatient providers.
[2017-05-17] MEDS: risperiDONE 2 mg Tablet PO SCH (21:00)
--- NOTE | 2017-05-18 06:50 | NUR ---
Sleep Adequate sleep through the night with no noted distress or awakening per protocol checks. Total sleep 5+ hours.
--- NOTE | 2017-05-18 13:23 | NUR ---
Balance Bridge Inspector/Counselor S:"The voices are in the background." O: Patient did not have any SI or HI, and he stated that the voices are only there a little bit and going on in the background. He stated that he is trying to ignore them as much as possible. No depression and patient rated his anxiety at a 2. A: Patient is very pleasant and cooperative. When not directly engaged with another person, he is mumbling to himself, but does not seem to be aware that he is doing so. He has actively engaged in structured groups today, and has been out in the milieu as well as walking the hallways. P: Follow care plan and coordinate with outpatient providers.
[2017-05-18 13:28] VITALS: BP 132/85; PULSE 89; RESP 16
--- NOTE | 2017-05-18 13:42 | NUR ---
Nursing Dayshift: S: "The voice was coming out of my mouth telling me to stay in my broom during all that drama." O: Patient denies hallucinations though does acknowledge voices coming out of his mouth at times telling him things. States they don't bother him. Good appetite at meals. Ambulating the may[place]a. Denies anxiety, depression, harmful thoughts and hallucinations. A: Approachable. Social with staff. P: CNCP> Monitor mood and behavior.
--- NOTE | 2017-05-18 14:07 | PCM.PNPSY ---
Subjective Date of Service May 18, 2017 Subjective I spent 30 minutes both reviewing treatment plan with our clinical team, interviewing the patient and providing supportive/educational psychotherapy. I spent more than 50% of the time counseling the patient. I reviewed the treatment plan with the him and discussed options available including the potential risks, benefits and side effects. Nick reports a continued improvement in thought organization and mood stability. Staff reports that he has been active and participating well in one- to-one unit and group activities. He denies depressive or manic symptoms review. He reported significant symptoms of psychosis including auditory hallucinations, ideas of reference,and paranoia. Staff notices that he is responding to internal stimuli when alone. Staff reported to me that the patient said "if I go home a voice told me to kill me and my family ". When I spoke to the patient about this he denied it. He stated that sometimes he hears a voice which says " you should ". He denies homicidal ideation towards his family. He denied suicidal ideation. We talked at length about different coping strategies he could use to maintain the gains he has had here on the unit. He denies medication side effects. Mental Status Exam Vital Signs Vital Signs Date Time Temp Pulse Resp B/P Pulse Ox O2 Delivery O2 Flow Rate FiO2 05/18/17 13:28 36.4 89 16 132/85 Appearance: Unkept Attitude: Pleasant, Cooperative Behavior: No unusual behavior Affect: Restricted Mood: Euthymic Thought Process/Associations: Logical/Sequential Speech Production: Normal Speech Rate: Normal Speech Articulation: Normal Thought Content: Suspicious Danger to Self/Suicidal Ideati: None Danger to Others: None Hallucinations: Auditory (Endorses, others talking through him) Consciousness: Alert Orientation: Person, Place, Date, Situation Memory: Grossly Intact Estimate Intellectual Function: Average (to), Below Average Basis for IQ estimate: Awareness current events, Educational history, Employment history Attention/Concentration & Cogn: Impaired Insight: Good Judgement: Good Mental Health Plan The patient is a 31-year-old male with a history of schizophrenia, who presents with symptom exacerbation after being switched from Invega Sustenna to oral Invega. He has been treated with Risperdal. He reports gradual but steady improvement in thought organization and mood stability. If he continues to stabilize and improve I would anticipate discharge in 5-7 days. [place] AXIS I. Schizophrenia, chronic paranoid type with acute exacerbation. AXIS II. Deferred. AXIS III. None acute. AXIS IV. None known. AXIS V. Global Assessment of Functioning 35. Medications Risperidone 4mg po nightly Benztropine 1mg po twice daily Treatments Patient is being provided with a high degree of safety through our unit structure and active adult engagement provided by our mental health professionals, mental health technicians, psychiatric nurses and myself. We are focusing on developing improved coping skills and identifying stressors that may have led to current episode. We will attempt to: * Integrate into therapeutic groups, milieu and individual therapy. * Maintain in a closely monitored and structured unit * Provide low-stimulation environment * Obtain collateral data to assist in treatment planning * Assess degree of lability of affect and impulse control * Complete safety plan * Decrease frequency of relapse and need for re-hospitalization * Establish a consistent sleep pattern * Medication effective in stabilization of mood and/or thought process * Reduce the risk of imminent harm to self and/or others by providing a safe environment * Tolerates medication without side effects Patient will be on the following psychiatric medications: Risperdal 4 mg at bedtime Cogentin 1 mg twice a day Education: Educate patient about recreational drug use as an etiology Educate about metabolic etiologies related to obesity Patient's legal status Patient is on a 14 day MR involuntary treatment hold. Patient will be given the opportunity to talk to her retail maintenance technician and the sampler ovens Anticipated number of additional hospital days to achieve above goals: 5 Disposition: Home Aden Farris MD May 18, 2017 14:07
--- NOTE | 2017-05-18 15:55 | NUR ---
NURSING NOTE [id number] (from 05/17/17-- ENTERED LATE) Mood: "pretty okay" Affect: internally preoccupied, pleasant in conversation Behavior: paced hallways chatting to himself on and off, occasionally sat in DR by himself appearing distracted, brightened in conversation w/staff and is med compliant Thought processes: reported his AH are improving, is looking forward to going home soon, denied anxiety or depression
[2017-05-18] MEDS: risperiDONE 2 mg Tablet PO SCH (20:53)
--- NOTE | 2017-05-19 12:11 | NUR ---
Patternmaker All Around/Counselor S:"The voices have mellowed." O:Patient did not report any SI or HI, no depression or anxiety. He reported that the voices have mellowed out and he is doing his best to not listen to him. A:Patient is aware of the voices, as he recognizes that they are coming out of his mouth. He is insistent that they have mellowed over the last few days, and he tries to not pay attention to what they are saying. Patient is able to converse in a logical manner. He maintains eye contact. He has participated in structured group today. He continues to pace the hallways and mumbling. P:Follow care plan and coordinate with outpatient providers.
--- NOTE | 2017-05-19 12:13 | PCM.PNPSY ---
Subjective Date of Service May 19, 2017 Subjective I spent 30 minutes both reviewing treatment plan with our clinical team, interviewing the patient and providing supportive/educational psychotherapy. I spent more than 50% of the time counseling the patient. I reviewed the treatment plan with the him and discussed options available including the potential risks, benefits and side effects. Nick reports a continued improvement in thought organization and mood stability. Staff reports that he has been active and participating well in one- to-one unit and group activities. He denies depressive or manic symptoms review. He reported significant symptoms of psychosis including auditory hallucinations, and ideas of reference. Staff reports he is responding to internal stimuli when alone. He denies homicidal ideation towards his family. He denied suicidal ideation. We talked at length about different coping strategies he could use to maintain the gains he has had here on the unit. He denies medication side effects. Mental Status Exam Appearance: Unkept Attitude: Pleasant, Cooperative Behavior: No unusual behavior Affect: Restricted Mood: Euthymic Thought Process/Associations: Logical/Sequential Speech Production: Normal Speech Rate: Normal Speech Articulation: Normal Thought Content: Suspicious Danger to Self/Suicidal Ideati: None Danger to Others: None Hallucinations: Auditory (Endorses, others talking through him) Consciousness: Alert Orientation: Person, Place, Date, Situation Memory: Grossly Intact Estimate Intellectual Function: Average (to), Below Average Basis for IQ estimate: Awareness current events, Educational history, Employment history Attention/Concentration & Cogn: Impaired Insight: Good Judgement: Good Mental Health Plan The patient is a 31-year-old male with a history of schizophrenia, who presents with symptom exacerbation after being switched from Invega Sustenna to oral Invega. He has been treated with Risperdal. He reports gradual but steady improvement in thought organization and mood stability. Nick reports a continued improvement in thought organization and mood stability. Staff reports that he has been active and participating well in one-to-one unit and group activities. He denies depressive or manic symptoms review. He reported significant symptoms of psychosis including auditory hallucinations, and ideas of reference. Staff reports he is responding to internal stimuli when alone. He denies homicidal ideation towards his family. He denied suicidal ideation. We talked at length about different coping strategies he could use to maintain the gains he has had here on the unit. He denies medication side effects.If he continues to stabilize and improve I would anticipate discharge in 5-7 days. [place] AXIS I. Schizophrenia, chronic paranoid type with acute exacerbation. AXIS II. Deferred. AXIS III. None acute. AXIS IV. None known. AXIS V. Global Assessment of Functioning 35. Medications Risperidone 4mg po nightly Benztropine 1mg po twice daily Treatments Patient is being provided with a high degree of safety through our unit structure and active adult engagement provided by our mental health professionals, mental health technicians, psychiatric nurses and myself. We are focusing on developing improved coping skills and identifying stressors that may have led to current episode. We will attempt to: * Integrate into therapeutic groups, milieu and individual therapy. * Maintain in a closely monitored and structured unit * Provide low-stimulation environment * Assess degree of lability of affect and impulse control * Complete safety plan * Decrease frequency of relapse and need for re-hospitalization * Establish a consistent sleep pattern * Medication effective in stabilization of mood and/or thought process * Reduce the risk of imminent harm to self and/or others by providing a safe environment * Tolerates medication without side effects Patient will be on the following psychiatric medications: Risperdal 4 mg at bedtime Cogentin 1 mg twice a day Education: Educate patient about recreational drug use as an etiology Educate about metabolic etiologies related to obesity Patient's legal status Patient is on a 14 day MR involuntary treatment hold. Patient will be given the opportunity to talk to her box car washer and the skip hoist engineer Anticipated number of additional hospital days to achieve above goals: 5 Disposition: Home Aden Farris MD May 19, 2017 12:13
--- NOTE | 2017-05-19 13:58 | NUR ---
Nursing Dayshift: S: "I think it is a really good day." O: Patient has been ambulating the mayorga much of the shift. Attending group activities. Noticed to be talking to himself and answering himself while walking and while in his room. Eating well at meals. Answers appropriately when addressed. A: Calm. Cooperative. IS. P: CPOC. Monitor mood and behavior.
[2017-05-19 14:04] VITALS: BP 116/70; PULSE 16; RESP 16
[2017-05-19] MEDS: risperiDONE 2 mg Tablet PO SCH (21:11)
--- NOTE | 2017-05-19 22:40 | NUR ---
Nursing Notes [id number] S: "I feel I am doing a little better, not a lot though". " The voices are still louder than I would like". O: Patient continues to walk up and down the hallways. Interacts with peers/staff appropriately, but rarely initiates interactions. Denies SI/HI, anxiety and depression. Reports auditory hallucinations. A: Flat affect. Appropriates. Verbally responds to internal stimulation. P: Monitor for safety and response to treatment. Follow plan of care.
--- NOTE | 2017-05-20 05:00 | NUR ---
nursing, nights, 11-7 s/o- has appeared to sleep after 2300 during q 15 minute assessments. a- no apparent distress. p- monitor behavior/emotional state, quality, times and amount of sleep, use and effect of medication. therese
--- NOTE | 2017-05-20 12:40 | NUR ---
Nursing Dayshift: S: "They say nice things to me. They predict the future. They say I'm leaving here on Tuesday." O: Patient continues to ambulate the [place] in constant conversation with the voices that he states are coming out of his mouth from his lips. Eating well at meals. Med compliant. Sits for short periods of time then back up ambulating the mayorga. Denies anxiety, depression, harmful thoughts, and hallucinations. Then he does acknowledge the voices per above statement. A: Restless. AH. Pacing. P: CPOC. Monitor mood and behavior.
[2017-05-20 14:31] VITALS: BP 109/82; PULSE 87; RESP 18
--- NOTE | 2017-05-20 14:34 | PCM.PNPSY ---
Subjective Date of Service May 20, 2017 Subjective I spent 30 minutes both reviewing treatment plan with our clinical team, interviewing the patient and providing supportive/educational psychotherapy. I spent more than 50% of the time counseling the patient. Nick reports a continued improvement in thought organization and mood stability. Staff reports that he has been active and participating well in one- to-one unit and group activities. He denies depressive or manic symptoms review. He reported significant symptoms of psychosis including auditory hallucinations, and ideas of reference. Staff reports he is responding to internal stimuli when alone but that this does not affect his activities of daily living or social interaction. He denies homicidal ideation towards his family. He denied suicidal ideation. We talked at length about different coping strategies he could use to maintain the gains he has had here on the unit. He denies medication side effects. Mental Status Exam Vital Signs Vital Signs Date Time Temp Pulse Resp B/P Pulse Ox O2 Delivery O2 Flow Rate FiO2 05/20/17 14:31 36.2 87 18 109/82 Appearance: Unkept Attitude: Pleasant, Cooperative Behavior: No unusual behavior Affect: Restricted Mood: Euthymic Thought Process/Associations: Logical/Sequential Speech Production: Normal Speech Rate: Normal Speech Articulation: Normal Thought Content: Suspicious Danger to Self/Suicidal Ideati: None Danger to Others: None Hallucinations: Auditory (Endorses, others talking through him) Consciousness: Alert Orientation: Person, Place, Date, Situation Memory: Grossly Intact Estimate Intellectual Function: Average (to), Below Average Basis for IQ estimate: Awareness current events, Educational history, Employment history Attention/Concentration & Cogn: Impaired Insight: Good Judgement: Good Mental Health Plan The patient is a 31-year-old male with a history of schizophrenia, who presents with symptom exacerbation after being switched from Invega Sustenna to oral Invega. He has been treated with Risperdal. He reports gradual but steady improvement in thought organization and mood stability. Nick reports a continued improvement in thought organization and mood stability. Staff reports that he has been active and participating well in one-to-one unit and group activities. He denies depressive or manic symptoms review. He reported significant symptoms of psychosis including auditory hallucinations, and ideas of reference. Staff reports he is responding to internal stimuli when alone. He denies homicidal ideation towards his family. He denied suicidal ideation. We talked at length about different coping strategies he could use to maintain the gains he has had here on the unit. He denies medication side effects. If he continues to stabilize and improve I would anticipate discharge in 4 days. [place] AXIS I. Schizophrenia, chronic paranoid type with acute exacerbation. AXIS II. Deferred. AXIS III. None acute. AXIS IV. None known. AXIS V. Global Assessment of Functioning 35. Medications Risperidone 4mg po nightly Benztropine 1mg po twice daily Treatments Patient is being provided with a high degree of safety through our unit structure and active adult engagement provided by our mental health professionals, mental health technicians, psychiatric nurses and myself. We are focusing on developing improved coping skills and identifying stressors that may have led to current episode. We will attempt to: * Integrate into therapeutic groups, milieu and individual therapy. * Maintain in a closely monitored and structured unit * Provide low-stimulation environment * Assess degree of lability of affect and impulse control * Complete safety plan * Decrease frequency of relapse and need for re-hospitalization * Establish a consistent sleep pattern * Medication effective in stabilization of mood and/or thought process * Reduce the risk of imminent harm to self and/or others by providing a safe environment * Tolerates medication without side effects Patient will be on the following psychiatric medications: Risperdal 4 mg at bedtime Cogentin 1 mg twice a day Education: Educate patient about recreational drug use as an etiology Educate about metabolic etiologies related to obesity Patient's legal status Patient is on a 14 day involuntary treatment hold. Patient will be given the opportunity to talk to her sour bleaching pleater and the magistrate judge Anticipated number of additional hospital days to achieve above goals: 5 Disposition: Home Aden Farris MD May 20, 2017 14:34
--- NOTE | 2017-05-20 19:03 | NUR ---
manager family/Counselor: S: "I don't know bus routes from [facility] to [place]." O: Patient slept 7 hours last night per staff. He denies S/I and H/I. He denies auditory hallucinations and visual hallucinations. Depression is 0/10 and anxiety is 0/10. When asked his mood, patient stated "Pretty good." Patient continues to pace the hallways talking to the voices in his head. This technical document writer attempted to call patient's mother but was unable to reach patient's mother. A: Patient is cooperative, polite, distactible, dysthymic, internally preoccupied, paranoid, limited insight, poor judgment. P: Follow care plan, coordinate with out-patient providers.
[2017-05-20] MEDS: risperiDONE 2 mg Tablet PO SCH (20:25)
--- NOTE | 2017-05-20 20:34 | NUR ---
Observations 00 - 0 Pt affect and mood was isolative, preoccupied, guarded, pacing unit and anxious. Pt speech and eye contact was ok. Pt is polite and cooperative. Pt is minimally social with peers and mostly keeps to himself. Pt attended meals in D.R. and has a good appetite. Pt ate 100% of his meals. Pt ate snack. Pt took a shower. Pt paced the hallway, talking to himself during free time. Pt attended group and unit activities. Pt was observed every 15 minutes as ordered throughout the shift.
[2017-05-20] MEDS: hydrOXYzine Pamoate 25 mg Capsule PO PRN (23:21)
[2017-05-20] MEDS: LORazepam 1 mg Tablet PO PRN (23:21)
--- NOTE | 2017-05-21 05:04 | NUR ---
Nursing Note Application Support Manager 7pm to 7am Pt visible on unit at start of shift, pacing the unit and having full blown conversations with unseen others. Pt is pleasant calm and cooperative, reports the voices do not torment him and are pleasant in nature. Pt affect is blunted and mood euthymic, hygiene is poor, appetite is good. Pt attempted to go to sleep at approx. 2100 but came in and out of room multiple times looking distressed but would not reveal what was troubling him. He did accept prn Ativan 1mg and Vistaril 50mg with good relief as he was able to sleep through the night without interruption. Monitored pt. q 15 minutes for safety location and accountability.
[2017-05-21 08:35] VITALS: BP 125/76; PULSE 82; RESP 16
[2017-05-21] MEDS: hydrOXYzine Pamoate 25 mg Capsule PO PRN (10:07)
--- NOTE | 2017-05-21 14:37 | NUR ---
Sheep Herder/Counselor S:"I'm going good today." O: Patient did not report any SI or HI. He rated his anxiety and his depression as low, and stated that he voices are just in the background. Patient slept for 6.5 hours. A: Patient stated that the voices aren't bothersome and remain in the background, but he has been overheard by staff and the mumbling has increased. The things the patient is saying are more hostile and angry than previously, and are easier to understand than at other times. Patient was cooperative and pleasant when addressed, but reverts right back to "the voices coming out of his mouth". P: Follow care plan and coordinate with outpatient providers.
[2017-05-21] MEDS: risperiDONE 1 mg Tablet PO SCH (14:46)
--- NOTE | 2017-05-21 17:09 | NUR ---
Nursing Note [id number] Behavior S/O: Pt out in milieu. Pt pacing up & down the [place] talking & answering himself. Pt visited with mother & aunt. Pt seemed happy with visit. Mother is in a w/c & states she will need to coordinate with her sister about picking pt up when he is discharged. Pt's aunt works Tuesday thru Tuesday. Mother would like to pickle water pump operator pt on the weekend if possible. Pt ate 100% of meals. Conversation tracking tangential. Pleasant & cooperative with cares. A: Pt appears to be responding to internal stimuli. P: Provide supportive environment. Monitor medications & effects.
--- NOTE | 2017-05-21 18:55 | NUR ---
[facility] Note D-Patient has been social when engaged but otherwise internally preoccupied. He attended group but responded to internal stimuli the entire group. He attended basic ADLs but appears disheveled. A-Patient has been pacing the hallway responding heavily to internal stimuli. At one point he grew agitated towards his hallucinations, threatening bodily harm. At this time he was cooperative with receiving a PRN and has calmed down, despite still responding to internal stimuli. He is able to converse with staff and peers without his voices interfering, although he did appear to fidget and move his legs more when engaging appropriately. He denies any suicidal or homicidal ideation and despite experiencing voices was unable to articulate to this realtime court reporter what his hallucinations consisted of. P-Continue current treatment plan.
[2017-05-21] MEDS: risperiDONE 2 mg Tablet PO SCH (21:03)
--- NOTE | 2017-05-21 21:23 | PCM.PNPSY ---
Subjective Date of Service May 21, 2017 Subjective The patient reports his mood is 8/10 where 10 is "perfect." He continues to endorse having individual speaking through him but reports that this is occurring one at a time. He reports that having risperidone at bedtime and does seem to help his night but he is having worsening symptoms during the day. The patient reports that he is going to have a new counselor at [facility]. He is still unsure whether they will pay for the long-acting injectable but would prefer Risperdal Consta if this is available. He denies side effects. Sleep: 6.5 hours, "pretty good" Appetite: "Really good" Suicidal and homicidal ideation: Denies Auditory hallucinations: Endorses as above Visual hallucinations: Denies Other Psychotic Symptoms: Reports others are speaking through him one at a time and can be observed talking to himself/running commentary. Anxiety: "Pretty good" Depression: None Current Medications Current Medications Risperidone 1 mg DAILY PO Last administered on 05/21/17t 14:46; Admin Dose 1 MG ; Start 05/21/17 at 14:20 Mental Status Exam Appearance: Unkept Attitude: Pleasant, Cooperative Behavior: No unusual behavior Affect: Restricted Mood: Euthymic Thought Process/Associations: Logical/Sequential Speech Production: Normal Speech Rate: Normal Speech Articulation: Normal Danger to Self/Suicidal Ideati: None Danger to Others: None Hallucinations: Auditory (Endorses, others talking through him), Visual (Denies ) Consciousness: Alert Orientation: Person, Place, Date, Situation Memory: Grossly Intact Estimate Intellectual Function: Average (to), Below Average Basis for IQ estimate: Awareness current events, Educational history, Employment history Attention/Concentration & Cogn: Impaired Insight: Good Judgement: Good Mental Health Plan The patient is a 31-year-old male with a history of schizophrenia, who presents with symptom exacerbation after being switched from Invega Sustenna to oral Invega. Discussed with outpatient team plan to switch to risperidone and potentially use Risperdal Consta. The patient's outpatient team will be investigating whether this is covered under his insurance. The patient is agreeable to this plan. The patient reports that moving risperidone to bedtime has helped with his symptoms but that he still has some during the day. He is agreeable to a small dose in the morning to see if this improves his symptoms. Patient agreeable to Consta if paid for by insurance. The patient reports responding well to benztropine. [place] AXIS I. Schizophrenia, chronic paranoid type with acute exacerbation. AXIS II. Deferred. AXIS III. None acute. AXIS IV. None known. AXIS V. Global Assessment of Functioning 35. Medications Risperidone 4mg po nightly Benztropine 1mg po twice daily Treatments 1. The patient will be admitted to the mental health unit and provided a safe and secure environment. 2. The patient is encouraged to participate with group and milieu activities. 3. The patient is currently denying homicidal or suicidal ideation and is agreeable to notifying staff should this change and is therefore not in need of a one-to-one at this time. 4. The treatment team will meet with the patient on an ongoing basis to assess symptom side effects and response to treatment. 5. Change Risperdal to 1 mg daily and 4mg nightly 6. Continue benztropine 1mg twice daily. 7. Awaiting follow-up from outpatient provider regarding coverage for Consta 8. Anticipated length of stay is 10-14 days with discharge early next week. Jj Sy MD May 21, 2017 21:23
--- NOTE | 2017-05-22 04:30 | NUR ---
Nursing Note Composition Professor 7pm to 7am Pt in a good mood at start of shift. Per report he had a successful visit with his mother and aunt. According to off going RN, pt.s Aunt would like him to be d/cd on a weekend as it will be easier for her to transport pt. Pt present in common area however interacts minimally with peers. He spent the majority if time, before bedtime, walking the halls having a full blown dialog with unseen others. When asked about the voices he hears he became guarded and stated Its others speaking through me. Pt took HS meds and went to bed at 2230. Pt slept through the night Monitored pt. q 15 minutes for safety location and accountability
[2017-05-22] MEDS: risperiDONE 1 mg Tablet PO SCH (08:42)
[2017-05-22 09:30] VITALS: BP 119/77; PULSE 66; RESP 16
--- NOTE | 2017-05-22 14:06 | NUR ---
Nursing Note [id number] Mood, Behavior S/O: Pt has good appetite. Pt took all of medications as ordered. Pt frequently seen talking to himself. Pt reports having audio hallucinations, but he states, "they're nice." Pt denies depression or anxiety. He says he is "ready" to discharge on Tuesday. There is a possibility that an uncle could pick him up as his mother & aunt can not. Conversation tracking clear & organized with normal rate & rhythm. Pleasant & cooperative with peers & staff. A: Pt responding to internal stimuli. P: Provide supportive environment. Monitor medications & effects.
--- NOTE | 2017-05-22 17:22 | PCM.PNPSY ---
Subjective Date of Service May 22, 2017 Subjective The patient was noted to be talking to himself listing various names starting with a "K" sounding first letter. He reported that he was trying to determine which individual was speaking through him and what their name was. He reports that they are not occurring as frequently and he is only having one at a time. He reports that the risperidone in the morning makes him mildly tired but seems to help control his symptoms better. He would still prefer to be on a long- acting injectable. Although the patient's mother cannot pick him up during the week another relative appears to be able to pick him up but it must occur by 10 or 11 AM on Tuesday. The patient reports that he is going to have a new counselor at [facility]. He is still unsure whether they will pay for the long-acting injectable but would prefer Risperdal Consta if this is available. He denies side effects. Sleep: 7.25 hours, "really good" Appetite: "Really good" Suicidal and homicidal ideation: Denies Auditory hallucinations: Endorses as above Visual hallucinations: Denies Other Psychotic Symptoms: Reports others are speaking through him one at a time and can be observed talking to himself/running commentary. Anxiety: Denies Depression: "Pretty good" Current Medications Current Medications Risperidone 1 mg DAILY PO Last administered on 05/22/17t 08:42; Admin Dose 1 MG ; Start 05/21/17 at 14:20 Mental Status Exam Vital Signs Vital Signs Date Time Temp Pulse Resp B/P Pulse Ox O2 Delivery O2 Flow Rate FiO2 05/22/17 09:30 36.2 66 16 119/77 Appearance: Unkept Attitude: Pleasant, Cooperative Behavior: No unusual behavior Affect: Restricted Mood: Euthymic Thought Process/Associations: Logical/Sequential Speech Production: Normal Speech Rate: Normal Speech Articulation: Normal Thought Content: Perseveration Danger to Self/Suicidal Ideati: None Danger to Others: None Hallucinations: Auditory (Endorses, others talking through him), Visual (Denies ) Consciousness: Alert Orientation: Person, Place, Date, Situation Memory: Grossly Intact Estimate Intellectual Function: Average (to), Below Average Basis for IQ estimate: Awareness current events, Educational history, Employment history Attention/Concentration & Cogn: Impaired Insight: Good Judgement: Good Mental Health Plan The patient is a 31-year-old male with a history of schizophrenia, who presents with symptom exacerbation after being switched from Invega Sustenna to oral Invega. Discussed with outpatient team plan to switch to risperidone and potentially use Risperdal Consta. The patient's outpatient team will be investigating whether this is covered under his insurance. The patient is agreeable to this plan. The patient reports that moving risperidone to bedtime has helped with his symptoms and having a small dose in the morning has reduced his daytime symptoms. Patient agreeable to Consta if paid for by insurance. The patient reports responding well to benztropine. [place] AXIS I. Schizophrenia, chronic paranoid type with acute exacerbation. AXIS II. Deferred. AXIS III. None acute. AXIS IV. None known. AXIS V. Global Assessment of Functioning 35. Medications Risperidone 1 mg daily and 4mg po nightly Benztropine 1mg po twice daily Treatments 1. The patient will be admitted to the mental health unit and provided a safe and secure environment. 2. The patient is encouraged to participate with group and milieu activities. 3. The patient is currently denying homicidal or suicidal ideation and is agreeable to notifying staff should this change and is therefore not in need of a one-to-one at this time. 4. The treatment team will meet with the patient on an ongoing basis to assess symptom side effects and response to treatment. 5. Continue Risperdal 1 mg daily and 4mg nightly 6. Continue benztropine 1mg twice daily. 7. Awaiting follow-up from outpatient provider regarding coverage for Consta 8. Anticipated length of stay is 10-14 days with discharge early next week. Jj Sy MD May 22, 2017 17:22
[2017-05-22] MEDS: risperiDONE 2 mg Tablet PO SCH (20:56)
[2017-05-22] MEDS: LORazepam 1 mg Tablet PO PRN (20:56)
--- NOTE | 2017-05-22 21:03 | NUR ---
Observations 899 - 2129 Pt affect and mood was isolative, preoccupied, guarded, pacing unit and anxious. Pt speech was rambling when responding to the voices but good when approached. Pt eye contact was ok. Pt paced the hallway, talking to himself during free time. Pt is polite and cooperative. Pt is minimally social with peers and mostly keeps to himself. Pt attended meals in [facility] and has a good appetite. Pt ate 100% of his meals. Pt ate snack. Pt attended community meeting and set a daily goal. Pt rated his mood 06/06. Pt attended group briefly and unit activities. Pt was observed every 15 minutes as ordered throughout the shift.
[2017-05-22] MEDS: hydrOXYzine Pamoate 25 mg Capsule PO PRN (23:17)
--- NOTE | 2017-05-23 02:14 | NUR ---
Nursing Noc Pt spent time out walking the hallway conversing with his voices. He has maintained behavioral control. Pleasant and responsive upon approach. Took scheduled medication without difficulty. Minimal engagement with his peers d/t internal preoccupation. Pt received prn Vistaril prior to bed for mild anxiety. Medication effective, pt retired to bed and has been asleep since 2299 with no noted distress or awakening per protocol checks. Addendum: 05/23/17 at 0407 by ERNESTO HAYS RN Pt has remained asleep since 0 and continues asleep. Total sleep over 5 hours.
[2017-05-23 08:22] VITALS: BP 117/88; PULSE 81; RESP 17
[2017-05-23] MEDS: risperiDONE 1 mg Tablet PO SCH (09:30)
--- NOTE | 2017-05-23 13:41 | NUR ---
NURS Note DAYSHIFT Mood: "I'm getting excited about leaving and getting back to the things I like to do." Denies depression, anxiety. Affect: Restricted Behavior: Pt appears to be responding to internal stimuli. Patient up for meals, watched bowling videos in group room. Pt attended group in the afternoon. Pleasant and appropriate with peers and staff. Thought Content/Process: Patient overheard repeating the number 3 and stating "What will happen when I get to 3?" Endorses AH. Denies VH. Denies SI, HI. PRN/NURS Notes: Plans to discharge tomorrow [id number], pick-up by relative, return to [place]. Pt may receive an risperidone long-acting injection prior to discharge, depending on insurance.
--- NOTE | 2017-05-23 16:03 | NUR ---
Communications Field Technician/Counselor S:"The voices are in the background." O: Patient denies any SI and HI, and states that the voices are only there are little and in the background. No visual hallucinations. No anxiety or depression. He slept for 7hrs. A: Patient to be discharged tomorrow. He participated in structured group. Continues to mumble and verbalize the voices. Patient was pleasant and cooperative. P: Follow care plan and coordinate with outpatient providers.
--- NOTE | 2017-05-23 18:19 | NUR ---
Observations [id number] Pt continues to pace halls, talking to himself. Requested multiple times throughout the day to watch bowling. Pt did participate in groups, attended all meals and at 100%. Pt took shower and is good with ADL's. Pt was observed every 15 minutes of shift as directed.
--- NOTE | 2017-05-23 20:44 | NUR ---
NURSING NOTE [id number] Mood: "alright" Affect: internally preoccupied Behavior: frequently pacing the hallway, talking to himself. Also watched TV w/peers and played video games. Spent time in the rec group. Not seen socializing much w/peers. He is med compliant. Thought processes: pt. continues to have AH and can be seen and heard interacting w/them quite frequently. Often the AH are of moravian content. Pt. denies VH tonight. Denies SI/HI and reports he feels ready and "happy" to discharge tomorrow.
[2017-05-23] MEDS: risperiDONE 2 mg Tablet PO SCH (20:46)
--- NOTE | 2017-05-23 22:15 | PCM.PNPSY ---
Subjective Date of Service May 23, 2017 Subjective The patient was noted to be talking to himself. He reports that the risperidone in the morning makes him mildly tired but seems to help control his symptoms better. He would still prefer to be on a long-acting injectable. The patient's insurance company indicates that they will pay for injection if he will self-administer. Patient believes his cousin Rico may be able to administer and will check. His new provider will be Miguelina Ruano at [facility]. He denies side effects. Sleep: 7 hours, Appetite: "Really good" Suicidal and homicidal ideation: Denies Auditory hallucinations: Endorses as above Visual hallucinations: Denies Other Psychotic Symptoms: Reports others are speaking through him one at a time and can be observed talking to himself/running commentary. Anxiety: Denies Depression: Denies Mental Status Exam Appearance: Unkept Attitude: Pleasant, Cooperative Behavior: No unusual behavior Affect: Restricted Mood: Euthymic Thought Process/Associations: Logical/Sequential Speech Production: Normal Speech Rate: Normal Speech Articulation: Normal Thought Content: Perseveration Danger to Self/Suicidal Ideati: None Danger to Others: None Hallucinations: Auditory (Endorses, others talking through him), Visual (Denies ) Consciousness: Alert Orientation: Person, Place, Date, Situation Memory: Grossly Intact Estimate Intellectual Function: Average (to), Below Average Basis for IQ estimate: Awareness current events, Educational history, Employment history Attention/Concentration & Cogn: Impaired Insight: Good Judgement: Good Mental Health Plan The patient is a 31-year-old male with a history of schizophrenia, who presents with symptom exacerbation after being switched from Invega Sustenna to oral Invega. Discussed with outpatient team plan to switch to risperidone and potentially use Risperdal Consta. The patient's outpatient team will be investigating whether this is covered under his insurance. The patient is agreeable to this plan. The patient reports that moving risperidone to bedtime has helped with his symptoms and having a small dose in the morning has reduced his daytime symptoms. Patient agreeable to Consta if paid for by insurance and cousin may be able to administer. The patient reports responding well to benztropine. [place] AXIS I. Schizophrenia, chronic paranoid type with acute exacerbation. AXIS II. Deferred. AXIS III. None acute. AXIS IV. None known. AXIS V. Global Assessment of Functioning 35. Medications Risperidone 1 mg daily and 4mg po nightly Benztropine 1mg po twice daily Treatments 1. The patient will be admitted to the mental health unit and provided a safe and secure environment. 2. The patient is encouraged to participate with group and milieu activities. 3. The patient is currently denying homicidal or suicidal ideation and is agreeable to notifying staff should this change and is therefore not in need of a one-to-one at this time. 4. The treatment team will meet with the patient on an ongoing basis to assess symptom side effects and response to treatment. 5. Continue Risperdal 1 mg daily and 4mg nightly 6. Continue benztropine 1mg twice daily. 7. Awaiting follow-up from outpatient provider regarding coverage for Consta 8. Anticipated length of stay is 10-14 days with discharge tomorrow. Jj Sy MD May 23, 2017 22:15
--- NOTE | 2017-05-24 05:13 | NUR ---
Nursing Note Blower Installer 11pm to 7am Pt asleep at start of shift and slept through the night with uninterrupted sleep. No concerns voiced or observed. Monitored pt with q 15 min face checks for safety, location and accountability
[2017-05-24] MEDS: risperiDONE 1 mg Tablet PO SCH (08:27)
--- NOTE | 2017-05-24 08:52 | NUR ---
Nursing: Day shift and discharge note. Nick was walking around unit at 0700 this morning. He was not "talking to self' as approached by ad copy writer. He acknowledged ad copy writer's greeting and made comment. Acknowledged that he is being discharged and gave pharmacy as [facility]. Alloutcomes met except optimal level of functioning whichi is ongoing at discharge. Has gathered belongings, received home meds, material from [employer], and is ready to leave. Addendum: 05/24/17 at 0858 by OMARI WILLETT RN Amended: Links added. Addendum: 05/24/17 at 1139 by OMARI WILLETT RN Nick's cousin arrived at 10:30. He waited for nick to be ready to discharged. [facility] demonstrated how to administer an IM injection to Erick galvan. He took written information on the skll and agreed that if needed and if he had further instruction from staff in [facility], he would be willing to assist Nick in receiving IM medication as ordered. Nick left, ambulatory, accompanied by cousin at 1130.
--- NOTE | 2017-05-24 09:49 | PCM.DIMED ---
Discharge Instructions Date of Service May 24, 2017 Dates of Hospitalization May 09, 2017 at 19:50 Discharge Diagnosis Discharge Diagnosis AXIS I. Schizophrenia, chronic paranoid type with acute exacerbation. AXIS II. Deferred. AXIS III. None acute. AXIS IV. None known. AXIS V. Global Assessment of Functioning 45. Diet Discharge Diet: No restrictions Activity Discharge Activity: No restrictions Patient Instructions Patient Instructions Should you have any thoughts of harming yourself or others, please call the crisis line, your provider, 911, or go to the nearest Emergency Department. Do not change or discontinue your medications without discussing with your provider. You have been given a prescription for 30 days supply of your new medication Follow-up plan Psychiatric follow-up [facility] 05/26/17 at 10:00am [address] [place] [address] Jj Sy MD May 24, 2017 09:49
[2017-05-24] MEDS ORDERED: RISP1TAB90 PO (09:51)
[2017-05-24] MEDS ORDERED: TRAZ-118 PO (09:51)
[2017-05-24] MEDS ORDERED: RISP2TAB21 PO (09:51)
[2017-05-24] MEDS ORDERED: HYDR-3797 PO (09:51)
[2017-05-24] MEDS ORDERED: BENZ1TAB7 PO (09:59)
--- NOTE | 2017-05-24 15:24 | NUR ---
Clay Modeler/Counselor S:"The voices are there, but not loud." O: Patient did not express any SI or HI, he rated his anxiety at a 5 or 6 but no depression. He still hears the voices but patient said they are calm. A Patient was discharged and picked up by his cousin. He will return to live with his mother. Patient was provided with an appt list, and has a follow up appt with a PCP as well as a counselor at [facility]. He was provided with all necessary discharge paperwork and follow up instructions. P:Follow care plan and discharge instructions.
[2017-05-24 16:30] VITALS: BP 105/72; PULSE 82; RESP 18
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
== END 2017-05-24 11:30 | disposition home or self-care (01) | DRG 885 ==
LOC: MHC 19:50
PROVIDERS: ADMIT Psychiatry & Neurology Psychiatry; ATTEND Psychiatry & Neurology Psychiatry
DX: F20.0 Paranoid schizophrenia (principal)